=== PATIENT | male | born 1985 | race Caucasian/White ===

== ENCOUNTER 2016-12-09 19:33 | Emergency (ER) | payer BC ==
[~2016-12-09 19:33] MED LIST: Sodium Chloride Irrig Solution 250 ML BOT ONE
--- NOTE | 2016-12-09 20:31 | CT ---
CT BRAIN WITHOUT CONTRAST 12/09/16 HISTORY: Injury. COMPARISON: None. FINDINGS: No acute territorial infarct or hemorrhage. No midline shift or mass effect. There is an area of dural thickening with enlarged draining vessels extending from the central sulcu s to the white matter and deep draining veins. This is best imaged on the coronal series 401, image 62. No acute hemorrhage or infarct. There is moderate right maxillary mucosal sinus thickening. The calvarium is intact. IMPRESSION: 1. No acute intracranial abnormality. 2. What is felt to be incidentally noted is prominent draining vessels along the right central sulcus extending to the deep draining veins with an area of right parietal dural thickening best see n on series 401, image #62. Differential includes vascular malformation, dural AV fistula, and devel opmental venous anomaly. Followup MRI of brain with and without contrast recommended. 3. Right maxillary sinusitis. POS: [facility]
[2016-12-09] MEDS ORDERED: traMADol HCl 50 MG TAB ONE (20:32)
[2016-12-09] MEDS ORDERED: Ondansetron ODT 4 MG TAB ONE (20:33)
--- NOTE | 2016-12-09 20:35 | CT ---
CT CERVICAL SPINE WITHOUT CONTRAST 12/09/16 HISTORY: Injury. COMPARISON: None. FINDINGS: The mastoids are clear. there is moderate facet arthropathy, greater than what would be expected for age, most severe bilaterally at C5-6 and C6-7. On the sagittal reformats this gives the appearance of a fracture, although this is not felt to be the case. This is just felt to represent osteoarthrit ic changes and osteophyte formation. IMPRESSION: 1. No acute fracture or malalignment. 2. 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 If there is focal tenderness, MRI would be recommended, although according to the clinician i n the ER who I spoke to at 8:30, patient does not have focal neck tenderness. Code CR POS: [id number]
--- NOTE | 2016-12-09 20:37 | RAD ---
LEFT WRIST THREE VIEW 12/09/16 HISTORY: Injury. COMPARISON: None. FINDINGS: There is intra-articular distal radius fracture with no significant displacement. Scapholunate inter kiera is normal. Ulnar styloid is maintained. IMPRESSION: Practically a nondisplaced and nonangulated intra-articular distal radius fracture. POS: [facility]
[2016-12-09] MEDS ORDERED: Triple Antibiotic Oint 1 GM Packet ONE (21:24)
[2016-12-09] MEDS ORDERED: Adacel (T-DAP) 0.5 ML VIAL ONE (21:57)
== END 2016-12-09 22:45 | disposition home or self-care (01) ==
LOC: MADERS 19:33
DX: S52.572A Other intraarticular fracture of lower end of left radius, initial encounter for closed fracture (principal); S61.411A Laceration without foreign body of right hand, initial encounter; G96.19 Other disorders of meninges, not elsewhere classified; S00.81XA Abrasion of other part of head, initial encounter; Z23 Encounter for immunization; V80.010A Animal-rider injured by fall from or being thrown from horse in noncollision accident, initial encounter
CPT/HCPCS: 12001; 70450; 72125; 90471; 90715; 94760; J2001; Q0162

== ENCOUNTER 2018-02-25 09:28 | Emergency (ER) | payer BC | END 2018-02-25 10:40 | disposition home or self-care (01) | LOC: MADERS 09:28 | DX: S00.83XA Contusion of other part of head, initial encounter (principal); W22.8XXA Striking against or struck by other objects, initial encounter | CPT/HCPCS: 99283 ==